=== PATIENT | female | born 1995 | race Hispanic/Latino ===

== ENCOUNTER 2020-08-03 12:24 | Emergency (ER) | payer OTHER ==
[~2020-08-03 12:24] MED LIST: NORE-109 PO
[2020-08-03] MEDS ORDERED: SODIUM CHLORIDE 0.9% 1000ML 1,000 ML IV ONE ×2 (12:38→14:49)
[2020-08-03 12:51] LABS: APPEARANCE,URINE Cloudy (CLEAR); BILIRUBIN,URINE Small (NEGATIVE); COLOR,URINE Dark Yellow (YELLOW); GLUCOSE, URINE (UA) Negative (NEGATIVE); KETONES,URINE Trace mg/dL (NEGATIVE); LEUKOCYTE ESTERASE ,URINE Trace (NEGATIVE); NITRATE,URINE Negative (NEGATIVE); OCCULT BLOOD,URINE Moderate (NEGATIVE); PROTEIN,URINE POS 2+ mg/dL (NEGATIVE)
[2020-08-03 12:53] LABS: HCG,QUAL RESULT NEGATIVE (NEGATIVE)
[2020-08-03 12:58] LABS: BASOPHILS % (AUTO) 0.6 % (0.0-5.0); EOSINOPHILS % (AUTO) 1.1 % (0.0-8.0); HEMATOCRIT 43.6 % (36-48); LYMPHOCYTES % (AUTO) 27.2 % (21.0-51.0); MEAN CORPUSCULAR HGB CONC 34.9 g/dL (32.0-36.0); MONOCYTES % (AUTO) 5.8 % (3.0-13.0); NEUTROPHILS % (AUTO) 65.1 % (40.0-77.0); NUCLEATED RED BLOOD CELLS 0.2 % (0.0-0.19); PLATELET COUNT (AUTO) 322 K/uL (130-400); RED BLOOD CELL COUNT(AUTO) 5.07 MIL/uL (4.00-5.50); RED CELL DISTRIBUTION WIDTH 12.4 % (11.0-15.5); WHITE BLOOD COUNT (AUTO) 13.2 K/uL (4.8-10.8)
[2020-08-03 13:08] LABS: BACTERIA,URINE Few /HPF (None Seen); RBC,URINE 0-1 /HPF (0-1); WBC,URINE 0-1 /HPF (0-1)
[2020-08-03 13:12] LABS: CREATININE 1.1 mg/dL (0.5-1.5)
[2020-08-03 13:16] LABS: ALBUMIN 4.2 g/dL (3.5-5.0); BILIRUBIN,TOTAL 0.5 mg/dL (0.2-1.0); TOTAL PROTEIN, SERUM 8.3 g/dL (6.0-8.3)
[2020-08-03] MEDS ORDERED: ONDANSETRON HCL 4 MG/2 ML VIAL ONE (13:19)
[2020-08-03] MEDS ORDERED: IOHEXOL-350 75 ML VIAL IV ONE (13:43)
[2020-08-03] MEDS ORDERED: POTASSIUM BICARB/CIT AC 25 MEQ TABLET.EFF ONE (14:10)
[2020-08-03] MEDS ORDERED: ACETAMINOPHEN EXTRA STRENGTH 500 MG TABLET ONE (14:11)
[2020-08-03] MEDS ORDERED: METOCLOPRAMIDE 10 MG/2 ML VIAL ONE (15:44)
== END 2020-08-03 16:25 | disposition home or self-care (01) ==
LOC: EDH 12:24
DX: A08.4 Viral intestinal infection, unspecified (principal); Z20.822 Contact with and (suspected) exposure to COVID-19; L40.9 Psoriasis, unspecified
CPT/HCPCS: 36415; 74177; 80053; 81001; 81025; 83605; 83690; 85025; 87040 ×2; 87426; 87804 ×2; 96361; 96365; 96375; 99285; J2405; J2765; J7030 ×2; Q9967; U0003

== ENCOUNTER 2021-04-14 14:48 | Inpatient (IN) | payer OTHER ==
[~2021-04-14] VITALS: Ht 175.3 cm; Wt 87.9 kg
[2021-04-14 15:56] LABS: BASOPHILS % (AUTO) 0.5 % (0.0-5.0); EOSINOPHILS % (AUTO) 1.2 % (0.0-8.0); HEMATOCRIT 38.1 % (36-48); LYMPHOCYTES % (AUTO) 31.2 % (21.0-51.0); MEAN CORPUSCULAR HEMOGLOBIN 30.3 pg (27.0-33.0); MEAN CORPUSCULAR HGB CONC 34.4 g/dL (32.0-36.0); MONOCYTES % (AUTO) 7.7 % (3.0-13.0); NEUTROPHILS % (AUTO) 59.2 % (40.0-77.0); PLATELET COUNT (AUTO) 258 K/uL (130-400); RED BLOOD CELL COUNT(AUTO) 4.33 MIL/uL (4.00-5.50); RED CELL DISTRIBUTION WIDTH 12.4 % (11.0-15.5); WHITE BLOOD COUNT (AUTO) 13.4 K/uL (4.8-10.8)
[2021-04-14 16:14] LABS: APPEARANCE,URINE Clear (CLEAR); BILIRUBIN,URINE Small (NEGATIVE); COLOR,URINE Dark Yellow (YELLOW); GLUCOSE, URINE (UA) Negative (NEGATIVE); KETONES,URINE 15 mg/dL (NEGATIVE); LEUKOCYTE ESTERASE ,URINE Small (NEGATIVE); NITRATE,URINE Negative (NEGATIVE); OCCULT BLOOD,URINE Trace (NEGATIVE); PROTEIN,URINE POS 1+ mg/dL (NEGATIVE)
[2021-04-14 16:15] LABS: HCG,QUAL RESULT NEGATIVE (NEGATIVE)
[2021-04-14 16:19] LABS: ALBUMIN 3.8 g/dL (3.5-5.0); BILIRUBIN,TOTAL 0.6 mg/dL (0.2-1.0); CREATININE 0.9 mg/dL (0.5-1.5)
[2021-04-14 16:20] LABS: AMPHET/METH SCREEN,URINE NEGATIVE (NEGATIVE); BARBITURATE SCREEN, URINE NEGATIVE (NEGATIVE); BENZODIAZEPINES SCREEN,URINE NEGATIVE (NEGATIVE); CANNABINOID SCREEN,URINE POSITIVE (NEGATIVE); COCAINE SCREEN,URINE NEGATIVE (NEGATIVE); OPIATE SCREEN,URINE NEGATIVE (NEGATIVE); PHENCYCLIDINE SCREEN,URINE NEGATIVE (NEGATIVE)
[2021-04-14 16:21] LABS: POTASSIUM 2.8 mmol/L (3.5-5.1)
[2021-04-14 16:21] LABS: BACTERIA,URINE Few /HPF (None Seen); RBC,URINE None Seen /HPF (0-1); WBC,URINE 0-1 /HPF (0-1)
[2021-04-14] MEDS ORDERED: PROCHLORPERAZINE 10MG/2ML INJ IV ONE (16:30)
[2021-04-14] MEDS ORDERED: POTASSIUM CHLORIDE 10MEQ/100ML 10 MEQ/100 ML ML IV SCH (17:00)
[2021-04-14] MEDS ORDERED: LIDOCAINE HCL-MPF 1% 2ML VIAL ONE (17:15)
[2021-04-14] MEDS ORDERED: PANTOPRAZOLE 40 MG/VIAL IVP ONE (19:30)
[2021-04-14 20:30] VITALS: BP 138/80
[2021-04-14] MEDS: LIDOCAINE HCL-MPF 1% 2ML VIAL IV PRN (21:39)
[2021-04-14] MEDS: POTASSIUM CHLORIDE 20MEQ/100ML 100 ML IV PRN (21:42)
[2021-04-14 22:25] LABS: CREATININE 0.8 mg/dL (0.5-1.5)
[2021-04-14 22:29] LABS: POTASSIUM 2.9 mmol/L (3.5-5.1)
[2021-04-14] MEDS: ONDANSETRON 4MG INJ IV PRN (23:38)
[2021-04-15] VITALS (18 sets, daily range): BP systolic 123–157; BP diastolic 70–103
[2021-04-15] MEDS: LACTATED RINGERS 1000ML 1,000 ML IV SCH ×3 (01:36→17:49)
[2021-04-15] MEDS: PROMETHAZINE HCL 25 MG/ML 1ML AMPULE IM PRN (01:58)
[2021-04-15 04:04] LABS: BASOPHILS % (AUTO) 0.6 % (0.0-5.0); HEMATOCRIT 36.8 % (36-48); LYMPHOCYTES % (AUTO) 26.6 % (21.0-51.0); MEAN CORPUSCULAR HEMOGLOBIN 29.9 pg (27.0-33.0); MEAN CORPUSCULAR HGB CONC 33.7 g/dL (32.0-36.0); MEAN CORPUSCULAR VOLUME 88.7 fL (79-99); MONOCYTES % (AUTO) 8.1 % (3.0-13.0); NEUTROPHILS % (AUTO) 63.5 % (40.0-77.0); PLATELET COUNT (AUTO) 243 K/uL (130-400); RED BLOOD CELL COUNT(AUTO) 4.15 MIL/uL (4.00-5.50); RED CELL DISTRIBUTION WIDTH 12.4 % (11.0-15.5); WHITE BLOOD COUNT (AUTO) 12.5 K/uL (4.8-10.8)
[2021-04-15 04:11] LABS: CREATININE 0.8 mg/dL (0.5-1.5); MAGNESIUM 1.9 mg/dL (1.80-2.40); PHOSPHORUS 3.5 mg/dL (2.5-4.9)
[2021-04-15 04:13] LABS: POTASSIUM 2.9 mmol/L (3.5-5.1)
[2021-04-15] MEDS ORDERED: METOCLOPRAMIDE 10 MG/2 ML VIAL ONE (04:28)
[2021-04-15] MEDS ORDERED: METOCLOPRAMIDE 10 MG/2 ML VIAL IM ONE (04:30)
[2021-04-15] MEDS: POTASSIUM CHLORIDE 20MEQ/100ML 100 ML IV PRN ×2 (04:32→07:47)
[2021-04-15] MEDS: LIDOCAINE HCL-MPF 1% 2ML VIAL IV PRN ×3 (04:33→10:27)
[2021-04-15 04:53] LABS: APPEARANCE,URINE Cloudy (CLEAR); BILIRUBIN,URINE Negative (NEGATIVE); GLUCOSE, URINE (UA) Negative (NEGATIVE); KETONES,URINE >=80 mg/dL (NEGATIVE); LEUKOCYTE ESTERASE ,URINE Negative (NEGATIVE); NITRATE,URINE Negative (NEGATIVE); OCCULT BLOOD,URINE Negative (NEGATIVE); PROTEIN,URINE Negative (NEGATIVE)
[2021-04-15 04:55] LABS: COLOR,URINE Dark Yellow (YELLOW)
[2021-04-15 05:03] LABS: AMORPHOUS SEDIMENT,UR Few /LPF (None Seen); BACTERIA,URINE Rare /HPF (None Seen); MUCUS,URINE Few LPF (None Seen); RBC,URINE None Seen /HPF (0-1); SQUAMOUS EPITHELIAL CELL,UR Few /HPF (0-2); WBC,URINE 0-1 /HPF (0-1)
[2021-04-15] MEDS: ONDANSETRON 4MG INJ IV PRN ×3 (07:41→22:57)
[2021-04-15] MEDS ORDERED: PANTOPRAZOLE 40 MG/VIAL IVP SCH (09:00)
[2021-04-15 10:22] LABS: CREATININE 0.8 mg/dL (0.5-1.5); POTASSIUM 3.1 mmol/L (3.5-5.1)
[2021-04-15] MEDS: METOCLOPRAMIDE 10 MG/2 ML VIAL IVP PRN ×3 (10:27→21:40)
[2021-04-15] MEDS ORDERED: MIDAZOLAM HCL 1 MG/ML 2ML VIAL ONE (12:12)
[2021-04-15] MEDS ORDERED: LIDOCAINE PF 100MG/5ML (2%) SYRINGE 5ML ONE (12:13)
[2021-04-15] MEDS ORDERED: FENTANYL CITRATE PF 50 MCG/1 ML 2ML VIAL ONE (12:13)
[2021-04-15] MEDS ORDERED: PROPOFOL 10 MG/ML 20ML VIAL IV ONE (12:13)
[2021-04-15] MEDS: KCL 20 MEQ ERTAB PO SCH (15:43)
[2021-04-15 15:59] LABS: CREATININE 0.7 mg/dL (0.5-1.5); POTASSIUM 3.2 mmol/L (3.5-5.1)
[2021-04-15] MEDS ORDERED: DEXAMETHASONE SOD PHOSPHATE 4 MG/ML 1ML VIAL IVP SCH (17:00)
[2021-04-15 18:07] LABS: MAGNESIUM 2.3 mg/dL (1.80-2.40)
[2021-04-15] MEDS ORDERED: CLONAZEPAM 0.5 MG TABLET PO SCH (19:30)
[2021-04-15] MEDS: PANTOPRAZOLE 40 MG/VIAL IVP SCH (21:40)
[2021-04-15] MEDS ORDERED: TRAZODONE HCL 100 MG TABLET ONE (23:06)
[2021-04-15] MEDS ORDERED: TRAZODONE HCL 50 MG TAB PO ONE (23:30)
[2021-04-16] VITALS (7 sets, daily range): BP systolic 125–196; BP diastolic 69–112
[2021-04-16] MEDS: PROMETHAZINE HCL 25 MG/ML 1ML AMPULE IM PRN (00:07)
[2021-04-16] MEDS: LACTATED RINGERS 1000ML 1,000 ML IV SCH ×3 (02:37→21:30)
[2021-04-16] MEDS: METOCLOPRAMIDE 10 MG/2 ML VIAL IVP PRN ×3 (02:55→19:25)
[2021-04-16] MEDS: ONDANSETRON 4MG INJ IV PRN ×2 (05:50→17:09)
[2021-04-16 07:21] LABS: BASOPHILS % (AUTO) 0.4 % (0.0-5.0); EOSINOPHILS % (AUTO) 0.3 % (0.0-8.0); HEMATOCRIT 36.9 % (36-48); LYMPHOCYTES % (AUTO) 29.3 % (21.0-51.0); MEAN CORPUSCULAR HEMOGLOBIN 30.2 pg (27.0-33.0); MEAN CORPUSCULAR HGB CONC 34.4 g/dL (32.0-36.0); MEAN CORPUSCULAR VOLUME 87.6 fL (79-99); MONOCYTES % (AUTO) 9.9 % (3.0-13.0); NEUTROPHILS % (AUTO) 59.7 % (40.0-77.0); PLATELET COUNT (AUTO) 232 K/uL (130-400); RED BLOOD CELL COUNT(AUTO) 4.21 MIL/uL (4.00-5.50); RED CELL DISTRIBUTION WIDTH 12.3 % (11.0-15.5); WHITE BLOOD COUNT (AUTO) 13.6 K/uL (4.8-10.8)
[2021-04-16 07:33] LABS: ALBUMIN 3.8 g/dL (3.5-5.0); BILIRUBIN,TOTAL 0.7 mg/dL (0.2-1.0); CREATININE 0.8 mg/dL (0.5-1.5); MAGNESIUM 1.8 mg/dL (1.80-2.40); POTASSIUM 3.4 mmol/L (3.5-5.1); TOTAL PROTEIN, SERUM 7.1 g/dL (6.0-8.3)
[2021-04-16] MEDS: PANTOPRAZOLE 40 MG/VIAL IVP SCH ×2 (08:06→20:44)
[2021-04-16] MEDS: POTASSIUM CHLORIDE 20MEQ/100ML 100 ML IV PRN ×2 (08:07→18:59)
[2021-04-16] MEDS: LIDOCAINE HCL-MPF 1% 2ML VIAL IV PRN ×3 (08:07→19:00)
[2021-04-16] MEDS ORDERED: CAPSAICIN CREAM 56.6GM TP SCH (09:00)
[2021-04-16] MEDS ORDERED: PHARMACY COMMUNICATION MISC SCH (09:00)
[2021-04-16] MEDS: TROLAMINE SALICYLATE CREAM 85 GM TUBE TP SCH ×3 (10:54→20:44)
[2021-04-16] MEDS: KCL 20 MEQ ERTAB PO SCH (14:00)
[2021-04-16] MEDS ORDERED: HYDROXYZINE 25 MG TABLET ONE (17:07)
[2021-04-16] MEDS ORDERED: POLYETHYLENE GLYCOL 3350 17 GM POWD.PACK PO ONE (19:00)
[2021-04-16] MEDS: DOCUSATE SODIUM 100 MG CAP PO SCH (20:44)
[2021-04-17] VITALS: BP 133/64
[2021-04-17] MEDS: HYDROXYZINE 25 MG TABLET PO PRN ×2 (00:53→13:36)
[2021-04-17] MEDS: ONDANSETRON 4MG INJ IV PRN (01:47)
[2021-04-17] MEDS: LIDOCAINE HCL-MPF 1% 2ML VIAL IV PRN (04:34)
[2021-04-17] MEDS: POTASSIUM CHLORIDE 20MEQ/100ML 100 ML IV PRN (04:35)
[2021-04-17 05:30] VITALS: BP 136/83
[2021-04-17] MEDS: LACTATED RINGERS 1000ML 1,000 ML IV SCH (06:33)
[2021-04-17 08:00] VITALS: BP 138/84
[2021-04-17 08:12] LABS: BASOPHILS % (AUTO) 0.5 % (0.0-5.0); EOSINOPHILS % (AUTO) 1.4 % (0.0-8.0); HEMATOCRIT 40.4 % (36-48); LYMPHOCYTES % (AUTO) 42.5 % (21.0-51.0); MEAN CORPUSCULAR HEMOGLOBIN 30.3 pg (27.0-33.0); MEAN CORPUSCULAR HGB CONC 35.1 g/dL (32.0-36.0); MEAN CORPUSCULAR VOLUME 86.3 fL (79-99); MONOCYTES % (AUTO) 8.3 % (3.0-13.0); NEUTROPHILS % (AUTO) 46.9 % (40.0-77.0); PLATELET COUNT (AUTO) 240 K/uL (130-400); RED BLOOD CELL COUNT(AUTO) 4.68 MIL/uL (4.00-5.50); RED CELL DISTRIBUTION WIDTH 12.6 % (11.0-15.5); WHITE BLOOD COUNT (AUTO) 11.3 K/uL (4.8-10.8)
[2021-04-17 08:19] LABS: CREATININE 0.9 mg/dL (0.5-1.5); MAGNESIUM 2.3 mg/dL (1.80-2.40); POTASSIUM 3.7 mmol/L (3.5-5.1)
[2021-04-17] MEDS: TROLAMINE SALICYLATE CREAM 85 GM TUBE TP SCH (09:00)
[2021-04-17] MEDS ORDERED: METOCLOPRAMIDE 5 MG TABLET ONE (09:26)
[2021-04-17] MEDS: METOCLOPRAMIDE 5 MG TABLET PO SCH ×2 (09:27→11:46)
[2021-04-17] MEDS: DOCUSATE SODIUM 100 MG CAP PO SCH (09:28)
[2021-04-17] MEDS ORDERED: KCL 20 MEQ ERTAB PO SCH (09:30)
[2021-04-17 12:00] VITALS: BP 168/90
[2021-04-17] MEDS ORDERED: PANTOPRAZOLE 40 MG TAB DR PO SCH (13:00)
[2021-04-17] MEDS ORDERED: AMLODIPINE 2.5 MG TAB PO SCH (13:00)
[2021-04-17 13:03] VITALS: BP 124/88
[2021-04-17] MEDS ORDERED: PANT40TA55 PO (15:22)
[2021-04-17] MEDS ORDERED: DOCU-116 PO (15:22)
[2021-04-17] MEDS ORDERED: HYDR-3421 PO (15:22)
[2021-04-17] MEDS ORDERED: METO5TAB87 PO (15:22)
[2021-04-18] MEDS ORDERED: PANTOPRAZOLE 40 MG TAB DR PO SCH (10:00)
== END 2021-04-17 16:00 | disposition home or self-care (01) | DRG 392 ==
LOC: EDH 14:48 → EDHIP 14:49 → 4DH 21:40
PROVIDERS: ADMIT Internal Medicine; ATTEND Internal Medicine
PROC: 0DB68ZX Excision of Stomach, Via Natural or Artificial Opening Endoscopic, Diagnostic (ICD-10-PCS; principal; 2021-04-15)
DX: R11.2 Nausea with vomiting, unspecified (principal); T80.1XXA Vascular complications following infusion, transfusion and therapeutic injection, initial encounter; E87.6 Hypokalemia; D72.829 Elevated white blood cell count, unspecified; E86.0 Dehydration; R82.4 Acetonuria; E66.3 Overweight; K44.9 Diaphragmatic hernia without obstruction or gangrene; K29.70 Gastritis, unspecified, without bleeding; K31.89 Other diseases of stomach and duodenum; F41.9 Anxiety disorder, unspecified; R11.10 Vomiting, unspecified; I80.8 Phlebitis and thrombophlebitis of other sites; F12.988 Cannabis use, unspecified with other cannabis-induced disorder; F12.90 Cannabis use, unspecified, uncomplicated; I80.9 Phlebitis and thrombophlebitis of unspecified site; Y84.8 Other medical procedures as the cause of abnormal reaction of the patient, or of later complication, without mention of misadventure at the time of the procedure; Z68.28 Body mass index [BMI] 28.0-28.9, adult; Y92.89 Other specified places as the place of occurrence of the external cause; Z83.3 Family history of diabetes mellitus; Z82.49 Family history of ischemic heart disease and other diseases of the circulatory system
CPT/HCPCS: 36415; 43239; 70450; 74018; 76705; 80048; 80053; 80305; 81001; 81025; 83605; 83735; 84100; 84132; 84145; 85025; 86677; 87040; 87338; 93005; 93971; A4606; C9113; G0378; J0780; J1100; J2001; J2250; J2405; J2550; J2704; J2765; J3010; J3480; J3490; J7120